=== PATIENT | female | born 1975 | race Two or more races ===

== ENCOUNTER 2018-03-09 20:46 | Emergency (ER) | payer MEDICAID, OTHER ==
[~2018-03-09] VITALS: Ht 160 cm; Wt 61.2 kg
[2018-03-09 20:55] VITALS: BP 94/57
[2018-03-09] MEDS ORDERED: DIATR MEGLU/DIATRIZOATE SODIUM 120 ML BOTTLE (GASTROGRAPHIN) PO ONE (21:30)
[2018-03-09] MEDS ORDERED: DIATR MEGLU/DIATRIZOATE SODIUM 120 ML BOTTLE (GASTROGRAPHIN) ONE (21:32)
[2018-03-09] MEDS ORDERED: DIATR MEGLU/DIATRIZOATE SODIUM 30 ML BOTTLE (GASTROGRAPHIN) ONE (21:38)
--- NOTE | 2018-03-09 22:22 | NUR ---
SPOKE WITH [facility] TO SET UP BLS TRANSPORT TO [facility]. ETA [id number]. TRIP# [id number].
== END 2018-03-09 22:58 ==
LOC: ER 20:47
DX: K94.23 Gastrostomy malfunction (principal); G93.1 Anoxic brain damage, not elsewhere classified
CPT/HCPCS: 43760; 74018; 99284; A4606; Q9963; Z7610

== ENCOUNTER 2023-08-30 10:04 | Inpatient (IN) | payer MEDICAID ==
[~2023-08-30] VITALS: Ht 121.9 cm; Wt 44.5 kg
[2023-08-30] VITALS (11 sets, daily range): BP systolic 97–119; BP diastolic 60–95; TEMP 98; O2SAT 96–100
[2023-08-30] MEDS ORDERED: NUTR250L62 GT (10:56)
[2023-08-30] MEDS ORDERED: DOCU100T2 GT (10:56)
[2023-08-30] MEDS ORDERED: ASCO-352 GT (10:56)
[2023-08-30] MEDS ORDERED: COLLAGEN POWDER TP (10:56)
[2023-08-30] MEDS ORDERED: ALBU6.7H9 IH (10:56)
[2023-08-30] MEDS ORDERED: ACET-73 GT (10:56)
[2023-08-30] MEDS ORDERED: MAGN400O6 GT (10:56)
[2023-08-30] MEDS ORDERED: NA P133E RC (10:56)
[2023-08-30] MEDS ORDERED: BISA10SU11 RC (10:56)
[2023-08-30] MEDS ORDERED: CHOL100043 GT (10:56)
[2023-08-30] MEDS ORDERED: PANT40SU2 GT (10:56)
[2023-08-30] MEDS ORDERED: ALBUT2 IH (10:56)
[2023-08-30] MEDS ORDERED: BACL10TA GT (10:56)
[2023-08-30] MEDS ORDERED: COLL30OI TP (10:56)
[2023-08-30] MEDS ORDERED: MULT-225 GT (10:56)
[2023-08-30] MEDS ORDERED: ACET160L44 GT (10:56)
[2023-08-30] MEDS ORDERED: ACET-868 GT (10:56)
[2023-08-30] MEDS ORDERED: ALBU2.5V38 IH (10:56)
[2023-08-30] MEDS ORDERED: AMIN30LI66 GT (10:56)
[2023-08-30] MEDS ORDERED: CHLO473M5 MM (10:56)
[2023-08-30] MEDS ORDERED: CRAN425C6 GT (10:56)
[2023-08-30] MEDS: IV NS 0.9% 1,000 ML BAG IV ONE (11:00)
[2023-08-30 11:07] LABS: BASOPHILS # (AUTO) 0.1 K/uL (0.0-0.2); BASOPHILS % (AUTO) 1.1 % (0.0-2.0); EOSINOPHILS # (AUTO) 0.3 K/uL (0.0-0.7); LYMPHOCYTES # (AUTO) 1.7 K/uL (0.8-4.8); LYMPHOCYTES % (AUTO) 17.4 % (20.0-44.0); MEAN CORPUSCULAR HEMOGLOBIN 23 PG (26.0-33.0); MEAN CORPUSCULAR HGB CONC 33 g/dl (31.0-36.0); MEAN CORPUSCULAR VOLUME 69 fL (82-100); MONOCYTES # (AUTO) 0.9 K/uL (0.1-1.30); MONOCYTES % (AUTO) 8.9 % (2.0-12.0); NEUTROPHILS # (AUTO) 6.7 K/uL (1.8-8.9); NEUTROPHILS % (AUTO) 69.6 % (43.0-81.0); PLATELET COUNT (AUTO) 801 K/uL (150-450); RED BLOOD CELL COUNT(AUTO) 2.75 MIL/uL (4.0-5.2); RED CELL DISTRIBUTION WIDTH 18.8 % (11.5-15.0); WHITE BLOOD COUNT (AUTO) 9.6 K/uL (4.3-11.0)
[2023-08-30 11:15] LABS: CALCIUM, SERUM 9.5 mg/dL (8.5-10.1); CREATININE 0.5 mg/dL (0.6-1.3)
[2023-08-30 11:17] LABS: HEMATOCRIT 19 % (33-45); HEMOGLOBIN 6.2 g/dL (11.5-14.8)
[2023-08-30 11:21] LABS: INR 1.06 (0.91-1.10); PARTIAL THROMBOPLASTIN TIME 30.2 SEC (24.3-34.3); PROTHROMBIN TIME 11.2 SECS (9.2-11.1)
[2023-08-30 11:26] LABS: POTASSIUM 2.7 mmol/L (3.5-5.1)
[2023-08-30 11:31] LABS: LACTIC ACID 2.7 mmol/L (0.4-2.0)
[2023-08-30] MEDS ORDERED: POTASSIUM CL. PREMIX PERIPHER. 0 ML ONE (11:59)
[2023-08-30] MEDS: POTASSIUM CL. PREMIX PERIPHER. 50 ML IV SCH (12:00)
[2023-08-30 12:23] LABS: ANISOCYTOSIS 1+; BAND % (MANUAL) 2 % (0.0-5.0); BASOPHILS % (MANUAL) 0 % (0.0-2.0); EOSINOPHILS % (MANUAL) 3 % (0-4); HYPOCHROMASIA 1+; LYMPHOCYTES % (MANUAL) 15 % (16-48); MONOCYTES % (MANUAL) 7 % (0-11.0); NEUTROPHILS % (MANUAL) 73 (42-76); PLATELET ESTIMATE INCREASED
[2023-08-30 12:42] LABS: ALBUMIN 1.8 g/dL (3.4-5.0); BILIRUBIN,DIRECT 0.2 mg/dL (0.0-0.2); BILIRUBIN,TOTAL 0.4 mg/dL (0.2-1.0); TOTAL PROTEIN, SERUM 9.1 g/dL (6.4-8.2)
[2023-08-30] MEDS ORDERED: POTASSIUM CL. PREMIX PERIPHER. 150 ML ONE (12:55)
[2023-08-30] MEDS ORDERED: POTASSIUM CL. PREMIX PERIPHER. 50 ML ONE (12:59)
[2023-08-30] MEDS ORDERED: MAG HYDROX/AL HYDROX/SIMETH 30 ML UDC PO PRN (13:30)
[2023-08-30] MEDS ORDERED: ONDANSETRON HCL/PF 4 MG/2 ML VIAL IVP PRN (13:30)
[2023-08-30] MEDS ORDERED: Z GUARD REMEDY 4 OZ OINT TP PRN (13:30)
[2023-08-30] MEDS ORDERED: MAGNESIUM HYDROXIDE 30 ML UDC PO PRN (13:30)
[2023-08-30] MEDS ORDERED: ZOLPIDEM TARTRATE 5 MG TABLET PO PRN (13:30)
[2023-08-30 14:12] LABS: CALCIUM, SERUM 8.6 mg/dL (8.5-10.1); CREATININE 0.4 mg/dL (0.6-1.3)
[2023-08-30 14:23] LABS: POTASSIUM 2.7 mmol/L (3.5-5.1)
[2023-08-30 16:21] LABS: OCCULT BLOOD STOOL POSITIVE (NEGATIVE)
[2023-08-30 19:22] LABS: HEMOGLOBIN 7.2 g/dL (11.5-14.8)
[2023-08-30 19:45] LABS: CREATININE, URINE 25.1 MG/DL (30.0-125.0); URINE TOTAL PROTEIN 87.1 mg/dL (0-11.9)
[2023-08-30 20:08] LABS: APPEARANCE,URINE CLOUDY (CLEAR); BILIRUBIN,URINE NEGATIVE (NEGATIVE); COLOR,URINE YELLOW (YELLOW); UGLUCOSE NEGATIVE (NEGATIVE)
[2023-08-30 20:09] LABS: BLOOD, URINE 2+ Ery/uL (NEGATIVE); KETONES,URINE NEGATIVE (NEGATIVE); PH,URINE 8.5 (5.0-8.0)
[2023-08-30 20:10] LABS: LEUKOCYTE ESTERASE ,URINE 3+ (NEGATIVE); NITRITE, URINE NEGATIVE (NEGATIVE); PROTEIN,URINE 2+ mg/dl (NEGATIVE)
[2023-08-30 20:23] LABS: CALCIUM, SERUM 8.2 mg/dL (8.5-10.1); CREATININE 0.4 mg/dL (0.6-1.3)
[2023-08-30 20:33] LABS: POTASSIUM 2.5 mmol/L (3.5-5.1)
[2023-08-30 20:46] LABS: EOSINOPHIL,URINE None Seen
[2023-08-30 20:54] LABS: ADD URINE CULTURE YES; BACTERIA,URINE Moderate /HPF (None Seen); SQUAMOUS EPITHELIAL CELL,UR Few /HPF (None Seen); WBC,URINE 21-50 /HPF (0-3)
[2023-08-30] MEDS: POTASSIUM CHLORIDE 10 MEQ/50 ML PREMIXED IVPB FOR PERIPHERAL LINE IV ONE (21:13)
[2023-08-31] VITALS (14 sets, daily range): BP systolic 90–113; BP diastolic 68–83; TEMP 97.7–99.5; O2SAT 92–99
[2023-08-31] MEDS: POTASSIUM CHLORIDE 10 MEQ/50 ML PREMIXED IVPB FOR PERIPHERAL LINE IV NR (00:30)
[2023-08-31] MEDS: ACETAMINOPHEN 325 MG TABLET PO PRN (00:52)
[2023-08-31] MEDS: IV NS 0.9% 1,000 ML IV PRN (04:15)
[2023-08-31 07:45] LABS: BASOPHILS % (AUTO) 0.2 % (0.0-2.0); EOSINOPHILS # (AUTO) 0.3 K/uL (0.0-0.7); EOSINOPHILS % (AUTO) 3.3 % (0.0-6.0); HEMATOCRIT 22 % (33-45); HEMOGLOBIN 7.1 g/dL (11.5-14.8); LYMPHOCYTES # (AUTO) 1.2 K/uL (0.8-4.8); LYMPHOCYTES % (AUTO) 15.4 % (20.0-44.0); MEAN CORPUSCULAR HEMOGLOBIN 24 PG (26.0-33.0); MEAN CORPUSCULAR HGB CONC 33 g/dl (31.0-36.0); MEAN CORPUSCULAR VOLUME 73 fL (82-100); MONOCYTES # (AUTO) 0.7 K/uL (0.1-1.30); MONOCYTES % (AUTO) 8.7 % (2.0-12.0); NEUTROPHILS # (AUTO) 5.8 K/uL (1.8-8.9); NEUTROPHILS % (AUTO) 72.4 % (43.0-81.0); PLATELET COUNT (AUTO) 674 K/uL (150-450); RED CELL DISTRIBUTION WIDTH 20.7 % (11.5-15.0)
[2023-08-31 08:01] LABS: CALCIUM, SERUM 8.6 mg/dL (8.5-10.1); CREATININE 0.3 mg/dL (0.6-1.3); MAGNESIUM 2.2 mg/dL (1.8-2.4); PHOSPHORUS 2.4 mg/dL (2.5-4.9)
[2023-08-31 08:07] LABS: POTASSIUM 2.7 mmol/L (3.5-5.1)
[2023-08-31] MEDS: PANTOPRAZOLE 40 MG VIAL IV SCH (08:26)
[2023-08-31 08:33] LABS: THYROID STIMULATING HORMONE 1.22 uIU/mL (0.358-3.74); URIC ACID 3.8 mg/dL (2.6-7.2)
[2023-08-31 09:20] LABS: ANISOCYTOSIS 1+; EOSINOPHILS % (MANUAL) 4 % (0-4); HYPOCHROMASIA 1+; LYMPHOCYTES % (MANUAL) 15 % (16-48); MONOCYTES % (MANUAL) 9 % (0-11.0); NEUTROPHILS % (MANUAL) 72 (42-76); PLATELET ESTIMATE INCREASED
[2023-08-31] MEDS ORDERED: MAG HYDROX/AL HYDROX/SIMETH 30 ML UDC GT PRN (09:40)
[2023-08-31] MEDS ORDERED: MAGNESIUM HYDROXIDE 30 ML UDC GT PRN ×2 (09:40→15:00)
[2023-08-31] MEDS: POTASSIUM CL. PREMIX PERIPHER. 50 ML IV SCH (09:57)
[2023-08-31] MEDS ORDERED: PANTOPRAZOLE 40 MG VIAL IV SCH (10:00)
[2023-08-31] MEDS: TWOCAL HN 1,000 ML LIQUID GT SCH (12:06)
[2023-08-31] MEDS ORDERED: NA PHOS,M-B/NA PHOS,DI-BA 1 EA ENEMA RC PRN (15:00)
[2023-08-31] MEDS ORDERED: Medication Not On Formulary EA (Acetaminophen 20 ML) GT PRN (15:00)
[2023-08-31] MEDS ORDERED: ALBUTEROL SULFATE 8 GM HFA.AER.AD IH PRN (15:00)
[2023-08-31] MEDS ORDERED: ACETAMINOPHEN 650 MG/20.3 ML UDC GT PRN (15:00)
[2023-08-31] MEDS ORDERED: BISACODYL SUPP (10 MG) 10 MG/SUPP.RECT SUPP.RECT RC PRN (15:00)
[2023-08-31] MEDS: MULTIVITAMINS,THERAGRAN 1 UDTAB TABLET GT SCH (15:07)
[2023-08-31] MEDS: CEFTRIAXONE 1 G in IV D5W 50 ML IV SCH (15:08)
[2023-08-31] MEDS ORDERED: ALBUTEROL FS 2.5 MG/3 ML VIAL.NEB NEB PRN (15:30)
[2023-08-31] MEDS: NEUTRA PHOS 1 POWD.PACKET GT ONE (15:36)
[2023-08-31 15:50] LABS: CALCIUM, SERUM 8.4 mg/dL (8.5-10.1); CREATININE 0.3 mg/dL (0.6-1.3); POTASSIUM 4.1 mmol/L (3.5-5.1)
[2023-08-31 16:14] LABS: PREGNANCY TEST URINE QUAL NEGATIVE (NEGATIVE)
[2023-08-31] MEDS: THERAHONEY GEL 1.5 OZ TUBE TP SCH (16:21)
[2023-08-31] MEDS ORDERED: Medication Not On Formulary EA (Cranberry Extract (Cranberry) 850 MG) GT SCH (17:00)
[2023-08-31] MEDS: CHOLECALCIFEROL 1,000 UNIT TABLET (VIT D3) GT SCH (17:33)
[2023-08-31] MEDS: BACLOFEN (10 MG) 10 MG TABLET GT SCH (17:33)
[2023-08-31] MEDS: ASCORBIC ACID 500 MG TABLET GT SCH (17:33)
[2023-08-31] MEDS: DOCUSATE SODIUM LIQ 100 MG/10 ML UDC GT SCH (17:33)
[2023-08-31] MEDS ORDERED: Medication Not On Formulary EA (Amino AC/Protein Hydr/Whey Pro (Liquacel Liquid Protein GT SCH (18:00)
[2023-08-31] MEDS: CHLORHEXIDINE GLUCONATE 15 ML UDC MM SCH (21:33)
[2023-08-31] MEDS: ALBUTEROL FS 2.5 MG/3 ML VIAL.NEB NEB SCH (21:35)
[2023-09-01] VITALS (14 sets, daily range): BP systolic 90–120; BP diastolic 65–86; TEMP 98.6–99.4; O2SAT 94–99
[2023-09-01 07:22] LABS: BASOPHILS % (AUTO) 0.4 % (0.0-2.0); EOSINOPHILS # (AUTO) 0.2 K/uL (0.0-0.7); EOSINOPHILS % (AUTO) 2.5 % (0.0-6.0); HEMATOCRIT 22 % (33-45); LYMPHOCYTES # (AUTO) 1.4 K/uL (0.8-4.8); LYMPHOCYTES % (AUTO) 15.2 % (20.0-44.0); MEAN CORPUSCULAR HEMOGLOBIN 24 PG (26.0-33.0); MEAN CORPUSCULAR HGB CONC 32 g/dl (31.0-36.0); MEAN CORPUSCULAR VOLUME 74 fL (82-100); MONOCYTES # (AUTO) 0.7 K/uL (0.1-1.30); MONOCYTES % (AUTO) 8.4 % (2.0-12.0); NEUTROPHILS # (AUTO) 6.6 K/uL (1.8-8.9); NEUTROPHILS % (AUTO) 73.5 % (43.0-81.0); PLATELET COUNT (AUTO) 668 K/uL (150-450); RED BLOOD CELL COUNT(AUTO) 2.94 MIL/uL (4.0-5.2); RED CELL DISTRIBUTION WIDTH 21.2 % (11.5-15.0); WHITE BLOOD COUNT (AUTO) 8.9 K/uL (4.3-11.0)
[2023-09-01 07:27] LABS: CALCIUM, SERUM 7.8 mg/dL (8.5-10.1); CREATININE 0.3 mg/dL (0.6-1.3); PHOSPHORUS 2.8 mg/dL (2.5-4.9); POTASSIUM 3.6 mmol/L (3.5-5.1)
[2023-09-01] MEDS: THERAHONEY GEL 1.5 OZ TUBE TP SCH ×2 (10:13→12:46)
[2023-09-01 12:00] LABS: ANISOCYTOSIS 1+; BASOPHILS % (MANUAL) 0 % (0.0-2.0); EOSINOPHILS % (MANUAL) 2 % (0-4); HYPOCHROMASIA 1+; LYMPHOCYTES % (MANUAL) 13 % (16-48); MONOCYTES % (MANUAL) 10 % (0-11.0); NEUTROPHILS % (MANUAL) 75 (42-76); OVALOCYTES 1+; PLATELET ESTIMATE INCREASED
[2023-09-01 14:12] LABS: CALCIUM, SERUM 8.2 mg/dL (8.5-10.1); CREATININE 0.3 mg/dL (0.6-1.3); POTASSIUM 3.5 mmol/L (3.5-5.1)
[2023-09-01] MEDS: ACETAMINOPHEN 650 MG/20.3 ML UDC GT PRN (17:14)
[2023-09-02] VITALS (22 sets, daily range): BP systolic 90–114; BP diastolic 56–85; TEMP 97.6–99; O2SAT 96–100
[2023-09-02] MEDS: PANTOPRAZOLE 40 MG/PACK PACK NG SCH (08:20)
[2023-09-02 10:15] LABS: BASOPHILS % (AUTO) 0.5 % (0.0-2.0); EOSINOPHILS # (AUTO) 0.2 K/uL (0.0-0.7); EOSINOPHILS % (AUTO) 3.1 % (0.0-6.0); LYMPHOCYTES # (AUTO) 1.3 K/uL (0.8-4.8); LYMPHOCYTES % (AUTO) 16.3 % (20.0-44.0); MEAN CORPUSCULAR HEMOGLOBIN 25 PG (26.0-33.0); MEAN CORPUSCULAR HGB CONC 32 g/dl (31.0-36.0); MEAN CORPUSCULAR VOLUME 76 fL (82-100); MONOCYTES # (AUTO) 0.5 K/uL (0.1-1.30); MONOCYTES % (AUTO) 6.3 % (2.0-12.0); NEUTROPHILS # (AUTO) 5.7 K/uL (1.8-8.9); NEUTROPHILS % (AUTO) 73.8 % (43.0-81.0); PLATELET COUNT (AUTO) 608 K/uL (150-450); RED BLOOD CELL COUNT(AUTO) 2.62 MIL/uL (4.0-5.2); RED CELL DISTRIBUTION WIDTH 21.7 % (11.5-15.0); WHITE BLOOD COUNT (AUTO) 7.7 K/uL (4.3-11.0)
[2023-09-02 10:18] LABS: HEMATOCRIT 20 % (33-45); HEMOGLOBIN 6.4 g/dL (11.5-14.8)
[2023-09-02 11:56] LABS: ANISOCYTOSIS 1+; BAND % (MANUAL) 2 % (0.0-5.0); BASOPHILS % (MANUAL) 0 % (0.0-2.0); EOSINOPHILS % (MANUAL) 3 % (0-4); HYPOCHROMASIA 2+; LYMPHOCYTES % (MANUAL) 14 % (16-48); MONOCYTES % (MANUAL) 5 % (0-11.0); NEUTROPHILS % (MANUAL) 76 (42-76); PLATELET ESTIMATE ADEQUATE
[2023-09-03] VITALS (19 sets, daily range): BP systolic 84–122; BP diastolic 56–75; TEMP 97.7–99.4; O2SAT 96–100
[2023-09-03] MEDS: PROSOURCE / PROSTAT (PYXIS) 30 ML UDC GT SCH (08:12)
[2023-09-03] MEDS: ARGININE/GLUTAMINE/CALCIUM BMB 1 EACH POWD.PACK GT SCH (08:12)
[2023-09-03 08:48] LABS: BASOPHILS % (AUTO) 0.3 % (0.0-2.0); EOSINOPHILS # (AUTO) 0.3 K/uL (0.0-0.7); EOSINOPHILS % (AUTO) 4.7 % (0.0-6.0); HEMATOCRIT 28 % (33-45); HEMOGLOBIN 8.9 g/dL (11.5-14.8); LYMPHOCYTES # (AUTO) 0.9 K/uL (0.8-4.8); LYMPHOCYTES % (AUTO) 13.6 % (20.0-44.0); MEAN CORPUSCULAR HEMOGLOBIN 26 PG (26.0-33.0); MEAN CORPUSCULAR HGB CONC 33 g/dl (31.0-36.0); MEAN CORPUSCULAR VOLUME 79 fL (82-100); MONOCYTES # (AUTO) 0.5 K/uL (0.1-1.30); MONOCYTES % (AUTO) 8.1 % (2.0-12.0); NEUTROPHILS # (AUTO) 4.7 K/uL (1.8-8.9); NEUTROPHILS % (AUTO) 73.3 % (43.0-81.0); PLATELET COUNT (AUTO) 539 K/uL (150-450); RED BLOOD CELL COUNT(AUTO) 3.49 MIL/uL (4.0-5.2); RED CELL DISTRIBUTION WIDTH 22.1 % (11.5-15.0); WHITE BLOOD COUNT (AUTO) 6.5 K/uL (4.3-11.0)
[2023-09-03 08:52] LABS: CALCIUM, SERUM 8.6 mg/dL (8.5-10.1); CREATININE 0.4 mg/dL (0.6-1.3); POTASSIUM 4.1 mmol/L (3.5-5.1)
[2023-09-04] VITALS (14 sets, daily range): BP systolic 96–128; BP diastolic 77–93; TEMP 96.5–97.8; O2SAT 95–100
[2023-09-04 07:15] LABS: BASOPHILS % (AUTO) 0.7 % (0.0-2.0); EOSINOPHILS # (AUTO) 0.3 K/uL (0.0-0.7); EOSINOPHILS % (AUTO) 4.4 % (0.0-6.0); HEMATOCRIT 27 % (33-45); HEMOGLOBIN 8.7 g/dL (11.5-14.8); LYMPHOCYTES # (AUTO) 1.1 K/uL (0.8-4.8); LYMPHOCYTES % (AUTO) 16.6 % (20.0-44.0); MEAN CORPUSCULAR HEMOGLOBIN 25 PG (26.0-33.0); MEAN CORPUSCULAR HGB CONC 32 g/dl (31.0-36.0); MEAN CORPUSCULAR VOLUME 79 fL (82-100); MONOCYTES # (AUTO) 0.6 K/uL (0.1-1.30); MONOCYTES % (AUTO) 8.5 % (2.0-12.0); NEUTROPHILS # (AUTO) 4.7 K/uL (1.8-8.9); NEUTROPHILS % (AUTO) 69.8 % (43.0-81.0); PLATELET COUNT (AUTO) 600 K/uL (150-450); RED BLOOD CELL COUNT(AUTO) 3.45 MIL/uL (4.0-5.2); RED CELL DISTRIBUTION WIDTH 22.9 % (11.5-15.0); WHITE BLOOD COUNT (AUTO) 6.7 K/uL (4.3-11.0)
[2023-09-04 07:31] LABS: CALCIUM, SERUM 9.1 mg/dL (8.5-10.1); CREATININE 0.4 mg/dL (0.6-1.3); POTASSIUM 3.7 mmol/L (3.5-5.1)
== END 2023-09-04 18:15 | DRG 951 ==
LOC: ER 10:27 → TELE1 12:39
PROVIDERS: ADMIT Student in an Organized Health Care Education/Training Program; ATTEND Legal Medicine
PROC: 30233N1 Transfusion of Nonautologous Red Blood Cells into Peripheral Vein, Percutaneous Approach (ICD-10-PCS; 2023-08-30)
PROC: 0KBV0ZZ Excision of Right Foot Muscle, Open Approach (ICD-10-PCS; principal; 2023-09-02)
PROC: 0JBR0ZZ Excision of Left Foot Subcutaneous Tissue and Fascia, Open Approach (ICD-10-PCS; 2023-09-02)
DX: D64.9 Anemia, unspecified (principal); L89.154 Pressure ulcer of sacral region, stage 4; L89.894 Pressure ulcer of other site, stage 4; L89.324 Pressure ulcer of left buttock, stage 4; G93.1 Anoxic brain damage, not elsewhere classified; R53.2 Functional quadriplegia; E87.4 Mixed disorder of acid-base balance; L89.896 Pressure-induced deep tissue damage of other site; J96.10 Chronic respiratory failure, unspecified whether with hypoxia or hypercapnia; L89.523 Pressure ulcer of left ankle, stage 3; E87.8 Other disorders of electrolyte and fluid balance, not elsewhere classified; E87.1 Hypo-osmolality and hyponatremia; E86.9 Volume depletion, unspecified; D75.839 Thrombocytosis, unspecified; E87.6 Hypokalemia; G89.29 Other chronic pain; I10 Essential (primary) hypertension; J45.909 Unspecified asthma, uncomplicated; R13.10 Dysphagia, unspecified; Z93.0 Tracheostomy status; Z93.1 Gastrostomy status; Z99.11 Dependence on respirator [ventilator] status; N39.0 Urinary tract infection, site not specified; B96.20 Unspecified Escherichia coli [E. coli] as the cause of diseases classified elsewhere; W34.00XS Accidental discharge from unspecified firearms or gun, sequela; R19.5 Other fecal abnormalities; M24.562 Contracture, left knee; M24.561 Contracture, right knee; M24.571 Contracture, right ankle; M24.572 Contracture, left ankle
CPT/HCPCS: 31720; 36415; 71045-TC; 80048-TC; 80076-TC; 81001; 82272-TC; 82570-TC; 83605-TC; 83735-TC; 83935-TC; 84100-TC; 84132-TC; 84300-TC; 84443-TC; 84550-TC; 84703-TC; 85025-TC; 85027-TC; 85730-TC; 86850-TC; 87040-TC; 87086-TC; 94640-TC; 94760-TC; 94761-TC; 94762-TC; 94799-TC; 99082-TC; A4623; A6403; A7526; C9113; G0378; J0696; J3480; J7030; J7040; J7050; J7060; P9016

== ENCOUNTER 2023-11-02 18:03 | Inpatient (IN) | payer MEDICAID ==
[~2023-11-02] VITALS: Ht 134.6 cm; Wt 38.6 kg
[~2023-11-02 18:03] MED LIST: ACET-73 GT; ACET-868 GT; ACET160L44 GT; ALBU2.5V38 IH; ALBU6.7H9 IH; ALBUT2 IH; AMIN30LI66 GT; ASCO-352 GT; BACL10TA GT; BISA10SU11 RC; CHLO473M5 MM; CHOL100043 GT; COLL30OI TP; COLLAGEN POWDER TP; CRAN425C6 GT; DOCU100T2 GT; MAGN400O6 GT; MULT-225 GT; NA P133E RC; NUTR250L62 GT; PANT40SU2 GT
[2023-11-02] MEDS: VANCOMYCIN 1 GM in IV D5W 250 ML IV ONE (18:30)
[2023-11-02] MEDS ORDERED: VANCOMYCIN 1 GM /D5W 250 ML PB IV ONE (18:46)
[2023-11-02] MEDS ORDERED: ASCO500L2 GT (18:55)
[2023-11-02] MEDS ORDERED: POVI3780 TP (18:55)
[2023-11-02] MEDS ORDERED: MULT9LIQ9 GT (18:55)
[2023-11-02] MEDS ORDERED: SODI473S9 TP (18:55)
[2023-11-02] MEDS ORDERED: FERR220E2 GT (18:55)
[2023-11-02] MEDS: CEFEPIME 1 GM in IV D5W 50 ML IV ONE (19:04)
[2023-11-02 19:05] LABS: BASOPHILS % (AUTO) 0.7 % (0.0-2.0); EOSINOPHILS # (AUTO) 0.3 K/uL (0.0-0.7); EOSINOPHILS % (AUTO) 4.1 % (0.0-6.0); HEMATOCRIT 26 % (33-45); HEMOGLOBIN 8.5 g/dL (11.5-14.8); LYMPHOCYTES # (AUTO) 1.4 K/uL (0.8-4.8); LYMPHOCYTES % (AUTO) 21.4 % (20.0-44.0); MEAN CORPUSCULAR HEMOGLOBIN 26 PG (26.0-33.0); MEAN CORPUSCULAR HGB CONC 33 g/dl (31.0-36.0); MEAN CORPUSCULAR VOLUME 79 fL (82-100); MONOCYTES # (AUTO) 0.7 K/uL (0.1-1.30); MONOCYTES % (AUTO) 10.1 % (2.0-12.0); NEUTROPHILS # (AUTO) 4.3 K/uL (1.8-8.9); NEUTROPHILS % (AUTO) 63.7 % (43.0-81.0); PLATELET COUNT (AUTO) 576 K/uL (150-450); RED BLOOD CELL COUNT(AUTO) 3.24 MIL/uL (4.0-5.2); RED CELL DISTRIBUTION WIDTH 19.8 % (11.5-15.0); WHITE BLOOD COUNT (AUTO) 6.7 K/uL (4.3-11.0)
[2023-11-02 19:16] LABS: CALCIUM, SERUM 8.9 mg/dL (8.5-10.1); CARBON DIOXIDE 39 mmol/L (21-32); CHLORIDE 83 mmol/L (98-107); CREATININE 0.3 mg/dL (0.6-1.3); GLUCOSE 106 mg/dL (74-106); POTASSIUM 3.4 mmol/L (3.5-5.1); SODIUM SERUM 125 mmol/L (136-145); UREA NITROGEN, BLOOD 17 mg/dL (7-18)
[2023-11-02 19:19] LABS: INR 1.06 (0.91-1.10); PARTIAL THROMBOPLASTIN TIME 32.2 SEC (24.3-34.3); PROTHROMBIN TIME 11.2 SECS (9.2-11.1)
[2023-11-02 19:22] LABS: LACTIC ACID 1.1 mmol/L (0.4-2.0)
[2023-11-02 19:32] LABS: BILIRUBIN,TOTAL 0.4 mg/dL (0.2-1.0)
[2023-11-02 19:33] LABS: ALANINE AMINOTRANSFERASE 55 U/L (12-78); ALBUMIN 1.6 g/dL (3.4-5.0); ALKALINE PHOSPHATASE 115 U/L (46-116); ASPARTATE AMINOTRANSFERASE 55 U/L (15-37); BILIRUBIN,DIRECT 0.1 mg/dL (0.0-0.2); TOTAL PROTEIN, SERUM 8.8 g/dL (6.4-8.2)
[2023-11-02 19:35] VITALS: O2SAT 100
[2023-11-02] MEDS ORDERED: MAG HYDROX/AL HYDROX/SIMETH 30 ML UDC GT PRN (21:00)
[2023-11-02] MEDS ORDERED: MAGNESIUM HYDROXIDE 30 ML UDC GT PRN (21:00)
[2023-11-02] MEDS ORDERED: CEFEPIME 1 GM in IV D5W 50 ML IV SCH (21:00)
[2023-11-02] MEDS ORDERED: ONDANSETRON HCL/PF 4 MG/2 ML VIAL IVP PRN (21:00)
[2023-11-02] MEDS ORDERED: ACETAMINOPHEN 650 MG/SUPP.RECT RC PRN (21:00)
[2023-11-02 21:27] LABS: APPEARANCE,URINE CLOUDY (CLEAR); COLOR,URINE YELLOW (YELLOW)
[2023-11-02 21:29] LABS: PH,URINE 8.5 (5.0-8.0)
[2023-11-02 21:30] LABS: BILIRUBIN,URINE NEGATIVE (NEGATIVE); KETONES,URINE NEGATIVE (NEGATIVE); PROTEIN,URINE 3+ mg/dl (NEGATIVE); UGLUCOSE NEGATIVE (NEGATIVE)
[2023-11-02 21:31] LABS: BLOOD, URINE 3+ Ery/uL (NEGATIVE); NITRITE, URINE POSITIVE (NEGATIVE); UROBILINOGEN,URINE 0.2 EU/dL (0.2)
[2023-11-02 21:32] LABS: LEUKOCYTE ESTERASE ,URINE 3+ (NEGATIVE)
[2023-11-02 21:38] LABS: RBC,URINE 51-80 /HPF (0-2); WBC,URINE 51-80 /HPF (0-3)
[2023-11-02 21:39] LABS: ADD URINE CULTURE YES; BACTERIA,URINE 4+ /HPF (None Seen); MUCUS,URINE Moderate /LPF (None Seen); SQUAMOUS EPITHELIAL CELL,UR 0-2 /HPF (None Seen)
[2023-11-02] MEDS ORDERED: Medication Not On Formulary EA (Acetaminophen 20 ML) GT PRN (22:00)
[2023-11-02] MEDS ORDERED: VANCOMYCIN 1 GM in IV D5W 250 ML IV ONE (22:00)
[2023-11-02] MEDS ORDERED: BISACODYL SUPP (10 MG) 10 MG/SUPP.RECT SUPP.RECT RC PRN (22:00)
[2023-11-02] MEDS ORDERED: ACETAMINOPHEN 650 MG/20.3 ML UDC GT PRN (22:00)
[2023-11-02] MEDS ORDERED: NA PHOS,M-B/NA PHOS,DI-BA 1 EA ENEMA RC PRN (22:00)
[2023-11-02 22:30] VITALS: BP 110/79; TEMP 98.6; O2SAT 95
[2023-11-02 22:56] VITALS: O2SAT 95
[2023-11-03] VITALS (12 sets, daily range): BP systolic 91–113; BP diastolic 62–81; TEMP 98.1–99.7; O2SAT 94–100
[2023-11-03] MEDS: IV NS 0.9% 1,000 ML IV SCH (00:11)
[2023-11-03] MEDS: BACLOFEN (10 MG) 10 MG TABLET GT SCH (00:57)
[2023-11-03] MEDS ORDERED: CEFEPIME 1 GM VIAL ONE (03:37)
[2023-11-03] MEDS: CEFEPIME 1 GM in IV D5W 50 ML IV SCH (04:34)
[2023-11-03] MEDS: ALBUTEROL FS 2.5 MG/3 ML VIAL.NEB IH SCH (05:42)
[2023-11-03 06:37] LABS: BASOPHILS % (AUTO) 0.3 % (0.0-2.0); EOSINOPHILS # (AUTO) 0.3 K/uL (0.0-0.7); EOSINOPHILS % (AUTO) 3.7 % (0.0-6.0); HEMATOCRIT 22 % (33-45); HEMOGLOBIN 7.4 g/dL (11.5-14.8); LYMPHOCYTES # (AUTO) 1.4 K/uL (0.8-4.8); LYMPHOCYTES % (AUTO) 17.5 % (20.0-44.0); MEAN CORPUSCULAR HEMOGLOBIN 27 PG (26.0-33.0); MEAN CORPUSCULAR HGB CONC 34 g/dl (31.0-36.0); MEAN CORPUSCULAR VOLUME 78 fL (82-100); MONOCYTES # (AUTO) 0.6 K/uL (0.1-1.30); MONOCYTES % (AUTO) 7.4 % (2.0-12.0); NEUTROPHILS # (AUTO) 5.6 K/uL (1.8-8.9); NEUTROPHILS % (AUTO) 71.1 % (43.0-81.0); PLATELET COUNT (AUTO) 539 K/uL (150-450); RED BLOOD CELL COUNT(AUTO) 2.75 MIL/uL (4.0-5.2); RED CELL DISTRIBUTION WIDTH 19.6 % (11.5-15.0); WHITE BLOOD COUNT (AUTO) 7.8 K/uL (4.3-11.0)
[2023-11-03 07:10] LABS: CREATININE 0.4 mg/dL (0.6-1.3); MAGNESIUM 1.7 mg/dL (1.8-2.4); PHOSPHORUS 3.2 mg/dL (2.5-4.9)
[2023-11-03 07:22] LABS: THYROID STIMULATING HORMONE 0.77 uIU/mL (0.358-3.74)
[2023-11-03 07:29] LABS: POTASSIUM 2.5 mmol/L (3.5-5.1)
[2023-11-03] MEDS: VANCOMYCIN 500 MG in IV D5W 100ml IV SCH (07:49)
[2023-11-03] MEDS: CHLORHEXIDINE GLUCONATE 15 ML UDC MM SCH (08:10)
[2023-11-03] MEDS: FERROUS SULFATE UDC 300 MG/5 ML UDC GT SCH (08:10)
[2023-11-03] MEDS: PANTOPRAZOLE 40 MG VIAL IV SCH (08:10)
[2023-11-03] MEDS: DOCUSATE SODIUM LIQ 100 MG/10 ML UDC GT SCH (08:10)
[2023-11-03] MEDS ORDERED: Medication Not On Formulary EA (Docusate Sodium 100 MG) GT SCH (09:00)
[2023-11-03] MEDS ORDERED: Medication Not On Formulary EA (Ferrous Sulfate 7.5 ML) GT SCH (09:00)
[2023-11-03] MEDS: POTASSIUM CHLORIDE 20 MEQ TAB.PRT.SR PO SCH (09:20)
[2023-11-03] MEDS: MAGNESIUM OXIDE 400 MG TABLET NG ONE (09:21)
[2023-11-03] MEDS: JEVITY 1.2 CAL 1,000 ML BOTTLE GT PRN (09:45)
[2023-11-03] MEDS: POTASSIUM CHLORIDE 20 MEQ POWDER PACKET GT SCH (17:05)
[2023-11-03] MEDS: ASCORBIC ACID 500 MG TABLET GT SCH (17:06)
[2023-11-03] MEDS: PROSOURCE / PROSTAT (PYXIS) 30 ML UDC GT SCH (17:06)
[2023-11-03] MEDS: ACETAMINOPHEN ES 500 MG TABLET GT PRN (17:22)
[2023-11-03] MEDS ORDERED: ASCORBIC ACID 500 MG GT SCH (18:00)
[2023-11-03] MEDS: IV NS 0.9% 1,000 ML IV PRN (22:49)
[2023-11-04] VITALS (19 sets, daily range): BP systolic 98–128; BP diastolic 64–76; TEMP 97.3–100; O2SAT 95–100
[2023-11-04 07:16] LABS: BASOPHILS % (AUTO) 0.5 % (0.0-2.0); EOSINOPHILS # (AUTO) 0.3 K/uL (0.0-0.7); EOSINOPHILS % (AUTO) 6.5 % (0.0-6.0); HEMATOCRIT 24 % (33-45); HEMOGLOBIN 7.7 g/dL (11.5-14.8); LYMPHOCYTES # (AUTO) 1.1 K/uL (0.8-4.8); LYMPHOCYTES % (AUTO) 20.2 % (20.0-44.0); MEAN CORPUSCULAR HEMOGLOBIN 26 PG (26.0-33.0); MEAN CORPUSCULAR HGB CONC 33 g/dl (31.0-36.0); MEAN CORPUSCULAR VOLUME 80 fL (82-100); MONOCYTES # (AUTO) 0.6 K/uL (0.1-1.30); MONOCYTES % (AUTO) 11.6 % (2.0-12.0); NEUTROPHILS # (AUTO) 3.3 K/uL (1.8-8.9); NEUTROPHILS % (AUTO) 61.2 % (43.0-81.0); PLATELET COUNT (AUTO) 564 K/uL (150-450); RED BLOOD CELL COUNT(AUTO) 2.94 MIL/uL (4.0-5.2); RED CELL DISTRIBUTION WIDTH 19.1 % (11.5-15.0); WHITE BLOOD COUNT (AUTO) 5.4 K/uL (4.3-11.0)
[2023-11-04 07:46] LABS: CALCIUM, SERUM 8.7 mg/dL (8.5-10.1); CREATININE 0.4 mg/dL (0.6-1.3); MAGNESIUM 2.2 mg/dL (1.8-2.4); PHOSPHORUS 3.4 mg/dL (2.5-4.9); POTASSIUM 3.4 mmol/L (3.5-5.1)
[2023-11-04 07:56] LABS: THYROID STIMULATING HORMONE 1.04 uIU/mL (0.358-3.74); URIC ACID 3.7 mg/dL (2.6-7.2)
[2023-11-04] MEDS: MULTIVIT W/MINERALS 1 TAB TABLET GT SCH (08:08)
[2023-11-04] MEDS: THERAHONEY GEL 1.5 OZ TUBE TP SCH (10:26)
[2023-11-04] MEDS: CADEXOMER IODINE 40 GM TUBE TP SCH (10:26)
[2023-11-04] MEDS: DAKINS QUARTER STRENGTH (0.125%) 480 ML BOTTLE TOP SCH (11:49)
[2023-11-04] MEDS ORDERED: DIATR MEGLU/DIATRIZOATE SODIUM 30 ML BOTTLE (GASTROGRAPHIN) ONE (14:00)
[2023-11-04] MEDS: METOCLOPRAMIDE HCL 10 MG/2 ML VIAL IV SCH (15:17)
[2023-11-04 16:15] LABS: IRON, SERUM 15 ug/dl (50-175); TOTAL IRON BINDING CAPACITY 193 ug/dl (250-450)
[2023-11-04 16:31] LABS: FERRITIN 27 ng/mL (8-388)
[2023-11-05] VITALS (18 sets, daily range): BP systolic 90–128; BP diastolic 57–89; TEMP 97.5–99; O2SAT 95–100
[2023-11-05 07:03] LABS: BASOPHILS % (AUTO) 0.6 % (0.0-2.0); EOSINOPHILS # (AUTO) 0.3 K/uL (0.0-0.7); EOSINOPHILS % (AUTO) 6.4 % (0.0-6.0); HEMATOCRIT 23 % (33-45); HEMOGLOBIN 7.7 g/dL (11.5-14.8); LYMPHOCYTES # (AUTO) 1.3 K/uL (0.8-4.8); MEAN CORPUSCULAR HEMOGLOBIN 27 PG (26.0-33.0); MEAN CORPUSCULAR HGB CONC 33 g/dl (31.0-36.0); MEAN CORPUSCULAR VOLUME 81 fL (82-100); MONOCYTES # (AUTO) 0.6 K/uL (0.1-1.30); MONOCYTES % (AUTO) 11.8 % (2.0-12.0); NEUTROPHILS # (AUTO) 2.7 K/uL (1.8-8.9); NEUTROPHILS % (AUTO) 54.2 % (43.0-81.0); PLATELET COUNT (AUTO) 539 K/uL (150-450)
[2023-11-05 07:32] LABS: BILIRUBIN,TOTAL 0.3 mg/dL (0.2-1.0); CALCIUM, SERUM 8.7 mg/dL (8.5-10.1); CREATININE 0.4 mg/dL (0.6-1.3); PHOSPHORUS 3.3 mg/dL (2.5-4.9); POTASSIUM 4.9 mmol/L (3.5-5.1); TOTAL PROTEIN, SERUM 7.9 g/dL (6.4-8.2)
[2023-11-05] MEDS: PANTOPRAZOLE 40 MG/PACK PACK NG SCH (08:21)
[2023-11-05 09:24] LABS: ALBUMIN 1.4 g/dL (3.4-5.0)
[2023-11-05] MEDS: THERAHONEY GEL 1.5 OZ TUBE TP SCH (09:34)
[2023-11-06] VITALS (15 sets, daily range): BP systolic 111–138; BP diastolic 67–88; TEMP 97.5–98.3; O2SAT 94–100
[2023-11-06 07:44] LABS: C-REACTIVE PROTEIN 5.32 mg/dL (0.0-0.30)
[2023-11-06 07:45] LABS: ALBUMIN 1.5 g/dL (3.4-5.0); BILIRUBIN,TOTAL 0.4 mg/dL (0.2-1.0); CALCIUM, SERUM 8.7 mg/dL (8.5-10.1); CREATININE 0.5 mg/dL (0.6-1.3); MAGNESIUM 1.9 mg/dL (1.8-2.4); PHOSPHORUS 3.6 mg/dL (2.5-4.9); POTASSIUM 4.5 mmol/L (3.5-5.1)
[2023-11-06 07:49] LABS: CALCIUM, SERUM 8.4 mg/dL (8.5-10.1); CREATININE 0.4 mg/dL (0.6-1.3); POTASSIUM 4.5 mmol/L (3.5-5.1)
[2023-11-06 07:57] LABS: BASOPHILS % (AUTO) 0.4 % (0.0-2.0); EOSINOPHILS # (AUTO) 0.3 K/uL (0.0-0.7); EOSINOPHILS % (AUTO) 4.3 % (0.0-6.0); HEMATOCRIT 23 % (33-45); HEMOGLOBIN 7.3 g/dL (11.5-14.8); LYMPHOCYTES # (AUTO) 1.1 K/uL (0.8-4.8); LYMPHOCYTES % (AUTO) 13.4 % (20.0-44.0); MEAN CORPUSCULAR HEMOGLOBIN 26 PG (26.0-33.0); MEAN CORPUSCULAR HGB CONC 32 g/dl (31.0-36.0); MEAN CORPUSCULAR VOLUME 82 fL (82-100); MONOCYTES # (AUTO) 0.6 K/uL (0.1-1.30); MONOCYTES % (AUTO) 8.3 % (2.0-12.0); NEUTROPHILS # (AUTO) 5.8 K/uL (1.8-8.9); NEUTROPHILS % (AUTO) 73.6 % (43.0-81.0); PLATELET COUNT (AUTO) 574 K/uL (150-450); RED BLOOD CELL COUNT(AUTO) 2.79 MIL/uL (4.0-5.2); WHITE BLOOD COUNT (AUTO) 7.9 K/uL (4.3-11.0)
[2023-11-06 08:19] LABS: ERYTHROCYTE SEDIMENTATION RATE 64 MM/HR (0-20)
[2023-11-06] MEDS: Z GUARD REMEDY 4 OZ OINT TP PRN (10:34)
[2023-11-06] MEDS: VANCOMYCIN 500 MG in IV D5W 100ml IV SCH (14:17)
== END 2023-11-06 21:01 | DRG 364 ==
LOC: ER 18:06 → TELE 20:03 → MED 11-05 10:36
PROC: 0KB00ZZ Excision of Head Muscle, Open Approach (ICD-10-PCS; principal; 2023-11-05)
PROC: 0KBP0ZZ Excision of Left Hip Muscle, Open Approach (ICD-10-PCS; 2023-11-05)
PROC: 0KBN0ZZ Excision of Right Hip Muscle, Open Approach (ICD-10-PCS; 2023-11-05)
PROC: 0KBW0ZZ Excision of Left Foot Muscle, Open Approach (ICD-10-PCS; 2023-11-05)
PROC: 0KBV0ZZ Excision of Right Foot Muscle, Open Approach (ICD-10-PCS; 2023-11-05)
DX: L89.814 Pressure ulcer of head, stage 4 (principal); G93.41 Metabolic encephalopathy; E43 Unspecified severe protein-calorie malnutrition; G93.1 Anoxic brain damage, not elsewhere classified; D68.59 Other primary thrombophilia; L89.016 Pressure-induced deep tissue damage of right elbow; J96.10 Chronic respiratory failure, unspecified whether with hypoxia or hypercapnia; E87.1 Hypo-osmolality and hyponatremia; E88.09 Other disorders of plasma-protein metabolism, not elsewhere classified; L89.026 Pressure-induced deep tissue damage of left elbow; E86.1 Hypovolemia; Z93.0 Tracheostomy status; Z99.11 Dependence on respirator [ventilator] status; T83.518A Infection and inflammatory reaction due to other urinary catheter, initial encounter; L89.524 Pressure ulcer of left ankle, stage 4; L89.154 Pressure ulcer of sacral region, stage 4; N39.0 Urinary tract infection, site not specified; E87.6 Hypokalemia; K94.23 Gastrostomy malfunction; Y84.6 Urinary catheterization as the cause of abnormal reaction of the patient, or of later complication, without mention of misadventure at the time of the procedure; Z68.21 Body mass index [BMI] 21.0-21.9, adult; R13.10 Dysphagia, unspecified; Z74.01 Bed confinement status; W34.00XS Accidental discharge from unspecified firearms or gun, sequela; D50.9 Iron deficiency anemia, unspecified; L90.5 Scar conditions and fibrosis of skin; L89.894 Pressure ulcer of other site, stage 4; M24.562 Contracture, left knee; M24.561 Contracture, right knee; F41.9 Anxiety disorder, unspecified; Y83.8 Other surgical procedures as the cause of abnormal reaction of the patient, or of later complication, without mention of misadventure at the time of the procedure; Y73.8 Miscellaneous gastroenterology and urology devices associated with adverse incidents, not elsewhere classified; Y92.129 Unspecified place in nursing home as the place of occurrence of the external cause; J45.909 Unspecified asthma, uncomplicated; I10 Essential (primary) hypertension
CPT/HCPCS: 31720; 36415; 71045-TC; 74018; 80048-TC; 80053-TC; 80076-TC; 80202-TC; 81001; 82607-TC; 82728-TC; 83540-TC; 83605-TC; 83735-TC; 84100-TC; 84443-TC; 84484-TC; 84550-TC; 85025-TC; 85045-TC; 85652-TC; 85730-TC; 86140-TC; 87040-TC; 87081-TC; 87086-TC; 94640-TC; 94761-TC; 94799-TC; A4223; A4623; A6253; A6403; G0378; J0692; J2470; J2765; J3370; J7030; J7060; Q9963

== ENCOUNTER 2023-12-31 12:56 | Inpatient (IN) | payer MEDICAID ==
[2023-12-31] VITALS (8 sets, daily range): BP systolic 95–114; BP diastolic 68–85; TEMP 98.6–100; O2SAT 92–100
[~2023-12-31] VITALS: Ht 132.1 cm; Wt 39.9 kg
[~2023-12-31 12:56] MED LIST changes: -ALBU6.7H9 IH; -ALBUT2 IH; -ASCO-352 GT; +ASCO500L2 GT; -CHOL100043 GT; -COLL30OI TP; -CRAN425C6 GT; +FERR220E2 GT; -MULT-225 GT; +MULT9LIQ9 GT; +POVI3780 TP; +SODI473S9 TP
[2023-12-31] MEDS ORDERED: FERR325T24 GT (13:56)
[2023-12-31] MEDS ORDERED: MULT-213 GT (13:56)
[2023-12-31] MEDS ORDERED: ALBU2.5V38 IH (13:56)
[2023-12-31] MEDS ORDERED: HYDR-3973 PO (13:56)
[2023-12-31 13:58] LABS: CALCIUM, SERUM 8.9 mg/dL (8.5-10.1); CREATININE 0.4 mg/dL (0.6-1.3); POTASSIUM 3.5 mmol/L (3.5-5.1)
[2023-12-31 14:01] LABS: BASOPHILS % (AUTO) 0.2 % (0.0-2.0); EOSINOPHILS # (AUTO) 0.3 K/uL (0.0-0.7); EOSINOPHILS % (AUTO) 3.9 % (0.0-6.0); HEMATOCRIT 21 % (33-45); LYMPHOCYTES # (AUTO) 1.5 K/uL (0.8-4.8); LYMPHOCYTES % (AUTO) 16.9 % (20.0-44.0); MEAN CORPUSCULAR HEMOGLOBIN 25 PG (26.0-33.0); MEAN CORPUSCULAR HGB CONC 32 g/dl (31.0-36.0); MEAN CORPUSCULAR VOLUME 80 fL (82-100); MONOCYTES # (AUTO) 0.8 K/uL (0.1-1.30); MONOCYTES % (AUTO) 9.1 % (2.0-12.0); NEUTROPHILS # (AUTO) 6.2 K/uL (1.8-8.9); NEUTROPHILS % (AUTO) 69.9 % (43.0-81.0); PLATELET COUNT (AUTO) 595 K/uL (150-450); RED BLOOD CELL COUNT(AUTO) 2.58 MIL/uL (4.0-5.2); RED CELL DISTRIBUTION WIDTH 19.6 % (11.5-15.0); WHITE BLOOD COUNT (AUTO) 8.9 K/uL (4.3-11.0)
[2023-12-31 14:05] LABS: HEMOGLOBIN 6.6 g/dL (11.5-14.8)
[2023-12-31] MEDS ORDERED: VANCOMYCIN 1 GM in IV D5W 250 ML IV ONE (14:30)
[2023-12-31] MEDS: IV NS 0.9% 1,000 ML BAG IV ONE (14:44)
[2023-12-31] MEDS: PIPERACILLIN /TAZOBACTAM 3.375 G in IV D5W 50 ML IV ONE (15:16)
[2023-12-31 15:28] LABS: ALANINE AMINOTRANSFERASE 43 U/L (12-78); ALBUMIN 1.8 g/dL (3.4-5.0); ALKALINE PHOSPHATASE 126 U/L (46-116); ASPARTATE AMINOTRANSFERASE 29 U/L (15-37); BILIRUBIN,DIRECT 0.1 mg/dL (0.0-0.2); BILIRUBIN,TOTAL 0.4 mg/dL (0.2-1.0); TOTAL PROTEIN, SERUM 9.5 g/dL (6.4-8.2)
[2023-12-31] MEDS ORDERED: ONDANSETRON HCL/PF 4 MG/2 ML VIAL IVP PRN (15:30)
[2023-12-31] MEDS ORDERED: MAGNESIUM HYDROXIDE 30 ML UDC PO PRN (15:30)
[2023-12-31] MEDS ORDERED: Z GUARD REMEDY 4 OZ OINT TP PRN (15:30)
[2023-12-31] MEDS ORDERED: MAG HYDROX/AL HYDROX/SIMETH 30 ML UDC PO PRN (15:30)
[2023-12-31] MEDS ORDERED: ACETAMINOPHEN 325 MG TABLET PO PRN (15:30)
[2023-12-31 15:35] LABS: EOSINOPHILS % (MANUAL) 3 % (0-4); LYMPHOCYTES % (MANUAL) 17 % (16-48); MONOCYTES % (MANUAL) 4 % (0-11.0); NEUTROPHILS % (MANUAL) 76 (42-76); PLATELET ESTIMATE ADEQUATE
[2023-12-31 15:36] LABS: ANISOCYTOSIS 2+; HYPOCHROMASIA 1+
[2023-12-31 15:49] LABS: LACTIC ACID 0.9 mmol/L (0.4-2.0)
[2023-12-31 15:56] LABS: INR 1.13 (0.91-1.10); PARTIAL THROMBOPLASTIN TIME 29.6 SEC (24.3-34.3); PROTHROMBIN TIME 11.5 SECS (9.2-11.1)
[2023-12-31] MEDS: IV NS 0.9% 1,000 ML IV PRN (17:31)
[2023-12-31] MEDS: CEFTRIAXONE 1 G in IV D5W 50 ML IV SCH (19:33)
[2023-12-31] MEDS: VANCOMYCIN 1 GM in IV D5W 250ml IV ONE (20:13)
[2023-12-31] MEDS ORDERED: ZOLPIDEM TARTRATE 5 MG TABLET PO PRN (22:00)
[2023-12-31] MEDS: ACETAMINOPHEN 650 MG/SUPP.RECT RC PRN (22:33)
[2024-01-01] VITALS (16 sets, daily range): BP systolic 110–124; BP diastolic 74–84; TEMP 97.9–100; O2SAT 93–100
[2024-01-01] MEDS: VANCOMYCIN 750 MG in IV D5W 250 ML IV SCH (03:20)
[2024-01-01 03:48] LABS: BASOPHILS % (AUTO) 0.4 % (0.0-2.0); EOSINOPHILS # (AUTO) 0.3 K/uL (0.0-0.7); EOSINOPHILS % (AUTO) 4.3 % (0.0-6.0); HEMATOCRIT 24 % (33-45); LYMPHOCYTES # (AUTO) 1.1 K/uL (0.8-4.8); LYMPHOCYTES % (AUTO) 17.3 % (20.0-44.0); MEAN CORPUSCULAR HEMOGLOBIN 27 PG (26.0-33.0); MEAN CORPUSCULAR HGB CONC 34 g/dl (31.0-36.0); MEAN CORPUSCULAR VOLUME 81 fL (82-100); MONOCYTES # (AUTO) 0.6 K/uL (0.1-1.30); MONOCYTES % (AUTO) 9.6 % (2.0-12.0); NEUTROPHILS # (AUTO) 4.5 K/uL (1.8-8.9); NEUTROPHILS % (AUTO) 68.4 % (43.0-81.0); PLATELET COUNT (AUTO) 519 K/uL (150-450); RED BLOOD CELL COUNT(AUTO) 2.94 MIL/uL (4.0-5.2); RED CELL DISTRIBUTION WIDTH 18.4 % (11.5-15.0); WHITE BLOOD COUNT (AUTO) 6.6 K/uL (4.3-11.0)
[2024-01-01 03:58] LABS: CALCIUM, SERUM 8.4 mg/dL (8.5-10.1); CREATININE 0.4 mg/dL (0.6-1.3); PHOSPHORUS 3.3 mg/dL (2.5-4.9); POTASSIUM 3.1 mmol/L (3.5-5.1)
[2024-01-01] MEDS: PANTOPRAZOLE 40 MG TABLET.DR PO SCH (07:30)
[2024-01-01] MEDS: THERAHONEY GEL 1.5 OZ TUBE TP SCH (09:00)
[2024-01-01] MEDS ORDERED: ALBUTEROL HALF STRENGTH 1.25 MG/3 ML VIAL.NEB NEB PRN (09:30)
[2024-01-01 09:40] LABS: ABG BASE EXCESS 5.4 mmol/L (-2.0-3.0); ABG OXYGEN SATURATION 95.6 % (94.0-98.0); ABG PCO2 38.3 mmHg (32.0-45.0); ABG PH 7.497 (7.350-7.450); ABG TOTAL HEMOGLOBIN 9.2 G/dL (12.0-16.0); COHb 1.1 % (0.5-1.5); MetHb 0.1 % (0.0-1.5); O2Hb 94.5 % (94.0-97.0)
[2024-01-01 10:50] LABS: APPEARANCE,URINE TURBID (CLEAR)
[2024-01-01 10:51] LABS: BILIRUBIN,URINE NEGATIVE (NEGATIVE); BLOOD, URINE 3+ Ery/uL (NEGATIVE); KETONES,URINE NEGATIVE (NEGATIVE); PROTEIN,URINE 2+ mg/dl (NEGATIVE); UGLUCOSE NEGATIVE (NEGATIVE); UROBILINOGEN,URINE 0.2 EU/dL (0.2)
[2024-01-01 10:52] LABS: LEUKOCYTE ESTERASE ,URINE 2+ (NEGATIVE); NITRITE, URINE POSITIVE (NEGATIVE)
[2024-01-01 11:01] LABS: COLOR,URINE OTHER (YELLOW)
[2024-01-01 11:04] LABS: ADD URINE CULTURE YES; BACTERIA,URINE 1+ /HPF (None Seen); RBC,URINE 51-80 /HPF (0-2); WBC,URINE 21-50 /HPF (0-3)
[2024-01-01 11:05] LABS: CALCIUM PHOSPHATE CRYSTALS,UR Few /HPF (None Seen)
[2024-01-01] MEDS: POTASSIUM CL. PREMIX PERIPHER. 50 ML IV SCH (12:24)
[2024-01-01] MEDS: ARGININE/GLUTAMINE/CALCIUM BMB 1 EACH POWD.PACK GT SCH (12:24)
[2024-01-01] MEDS: JEVITY 1.2 CAL 1,000 ML BOTTLE GT PRN (14:15)
[2024-01-01] MEDS ORDERED: NA PHOS,M-B/NA PHOS,DI-BA 1 EA ENEMA RC PRN (14:30)
[2024-01-01] MEDS ORDERED: HYDROCODONE/APAP 5/325MG TABLET PO PRN (14:30)
[2024-01-01] MEDS ORDERED: BISACODYL SUPP (10 MG) 10 MG/SUPP.RECT SUPP.RECT RC PRN (14:30)
[2024-01-01] MEDS ORDERED: MAGNESIUM HYDROXIDE 30 ML UDC GT PRN (14:30)
[2024-01-01] MEDS: ZOSYN IVPB 3.375 G in IV D5W 50ml IV SCH (14:34)
[2024-01-01] MEDS: BACLOFEN (10 MG) 10 MG TABLET GT SCH (17:30)
[2024-01-01] MEDS: FERROUS SULFATE UDC 300 MG/5 ML UDC GT SCH (17:31)
[2024-01-01] MEDS: ALBUTEROL FS 2.5 MG/3 ML VIAL.NEB NEB SCH (19:47)
[2024-01-01] MEDS: CHLORHEXIDINE GLUCONATE 15 ML UDC MM SCH (20:41)
[2024-01-02] VITALS (19 sets, daily range): BP systolic 102–129; BP diastolic 65–85; TEMP 97.6–98.5; O2SAT 94–100
[2024-01-02] MEDS: VANCOMYCIN 750 MG in IV D5W 250 ML IV SCH (02:20)
[2024-01-02 07:40] LABS: CALCIUM, SERUM 8.8 mg/dL (8.5-10.1); CREATININE 0.5 mg/dL (0.6-1.3); POTASSIUM 3.3 mmol/L (3.5-5.1)
[2024-01-02] MEDS: PANTOPRAZOLE 40 MG/PACK PACK GT SCH (09:32)
[2024-01-02] MEDS: ASCORBIC ACID 500 MG TABLET PO SCH (09:32)
[2024-01-02] MEDS: POTASSIUM CHLORIDE 20 MEQ POWDER PACKET NG SCH (10:58)
[2024-01-03] VITALS (17 sets, daily range): BP systolic 97–117; BP diastolic 64–72; TEMP 97.4–98.6; O2SAT 97–100
[2024-01-03 10:04] LABS: CALCIUM, SERUM 8.4 mg/dL (8.5-10.1); CREATININE 0.5 mg/dL (0.6-1.3)
[2024-01-03] MEDS: PIPERACILLIN /TAZOBACTAM 3.375 G in IV D5W 100 ML IV SCH (12:24)
[2024-01-04] VITALS (18 sets, daily range): BP systolic 99–115; BP diastolic 68–90; TEMP 97.9–98.4; O2SAT 98–100
[2024-01-04 07:57] LABS: BASOPHILS % (AUTO) 0.4 % (0.0-2.0); EOSINOPHILS # (AUTO) 0.4 K/uL (0.0-0.7); EOSINOPHILS % (AUTO) 7.4 % (0.0-6.0); HEMATOCRIT 27 % (33-45); HEMOGLOBIN 8.4 g/dL (11.5-14.8); LYMPHOCYTES # (AUTO) 1.1 K/uL (0.8-4.8); LYMPHOCYTES % (AUTO) 22.8 % (20.0-44.0); MEAN CORPUSCULAR HEMOGLOBIN 27 PG (26.0-33.0); MEAN CORPUSCULAR HGB CONC 32 g/dl (31.0-36.0); MEAN CORPUSCULAR VOLUME 84 fL (82-100); MONOCYTES # (AUTO) 0.5 K/uL (0.1-1.30); MONOCYTES % (AUTO) 9.9 % (2.0-12.0); NEUTROPHILS # (AUTO) 2.9 K/uL (1.8-8.9); NEUTROPHILS % (AUTO) 59.5 % (43.0-81.0); PLATELET COUNT (AUTO) 489 K/uL (150-450); RED BLOOD CELL COUNT(AUTO) 3.14 MIL/uL (4.0-5.2); RED CELL DISTRIBUTION WIDTH 19.1 % (11.5-15.0); WHITE BLOOD COUNT (AUTO) 4.9 K/uL (4.3-11.0)
[2024-01-04 08:48] LABS: BILIRUBIN,TOTAL 0.3 mg/dL (0.2-1.0); CALCIUM, SERUM 8.2 mg/dL (8.5-10.1); CREATININE 0.4 mg/dL (0.6-1.3); MAGNESIUM 2.2 mg/dL (1.8-2.4); PHOSPHORUS 3.2 mg/dL (2.5-4.9); POTASSIUM 3.7 mmol/L (3.5-5.1); TOTAL PROTEIN, SERUM 7.5 g/dL (6.4-8.2)
[2024-01-04 09:05] LABS: ALBUMIN 1.3 g/dL (3.4-5.0)
[2024-01-04 13:20] LABS: PREGNANCY TEST URINE QUAL NEGATIVE (NEGATIVE)
[2024-01-05] VITALS (18 sets, daily range): BP systolic 110–119; BP diastolic 51–80; TEMP 95.5–99.1; O2SAT 99–100
[2024-01-05 07:01] LABS: OCCULT BLOOD STOOL NEGATIVE (NEGATIVE)
[2024-01-05 08:25] LABS: CALCIUM, SERUM 8.3 mg/dL (8.5-10.1); CREATININE 0.4 mg/dL (0.6-1.3); POTASSIUM 3.6 mmol/L (3.5-5.1)
[2024-01-06] VITALS (13 sets, daily range): BP systolic 112–130; BP diastolic 58–86; TEMP 97.7–98.4; O2SAT 99–100
[2024-01-06] MEDS: JEVITY 1.2 CAL 1,000 ML BOTTLE GT PRN (05:07)
[2024-01-06 07:56] LABS: BASOPHILS % (AUTO) 0.7 % (0.0-2.0); EOSINOPHILS # (AUTO) 0.5 K/uL (0.0-0.7); EOSINOPHILS % (AUTO) 8.6 % (0.0-6.0); HEMATOCRIT 26 % (33-45); HEMOGLOBIN 8.3 g/dL (11.5-14.8); LYMPHOCYTES # (AUTO) 1.1 K/uL (0.8-4.8); LYMPHOCYTES % (AUTO) 18.3 % (20.0-44.0); MEAN CORPUSCULAR HEMOGLOBIN 27 PG (26.0-33.0); MEAN CORPUSCULAR HGB CONC 32 g/dl (31.0-36.0); MEAN CORPUSCULAR VOLUME 84 fL (82-100); MONOCYTES # (AUTO) 0.5 K/uL (0.1-1.30); MONOCYTES % (AUTO) 7.3 % (2.0-12.0); NEUTROPHILS # (AUTO) 4.1 K/uL (1.8-8.9); NEUTROPHILS % (AUTO) 65.1 % (43.0-81.0); PLATELET COUNT (AUTO) 451 K/uL (150-450); RED BLOOD CELL COUNT(AUTO) 3.12 MIL/uL (4.0-5.2); RED CELL DISTRIBUTION WIDTH 19.5 % (11.5-15.0); WHITE BLOOD COUNT (AUTO) 6.3 K/uL (4.3-11.0)
[2024-01-06 08:10] LABS: BILIRUBIN,TOTAL 0.2 mg/dL (0.2-1.0); CREATININE 0.5 mg/dL (0.6-1.3); MAGNESIUM 2.3 mg/dL (1.8-2.4); PHOSPHORUS 3.7 mg/dL (2.5-4.9); POTASSIUM 3.7 mmol/L (3.5-5.1); TOTAL PROTEIN, SERUM 7.5 g/dL (6.4-8.2)
[2024-01-06 08:28] LABS: ANISOCYTOSIS 1+; PLATELET ESTIMATE INCREASED
[2024-01-06 08:32] LABS: ALBUMIN 1.3 g/dL (3.4-5.0)
== END 2024-01-06 16:46 | DRG 364 ==
LOC: ER 13:09 → TELE-TD 15:32 → TELE1 16:28
PROC: 30233N1 Transfusion of Nonautologous Red Blood Cells into Peripheral Vein, Percutaneous Approach (ICD-10-PCS; principal; 2023-12-31)
PROC: 0KB00ZZ Excision of Head Muscle, Open Approach (ICD-10-PCS; 2024-01-06)
PROC: 0KBN0ZZ Excision of Right Hip Muscle, Open Approach (ICD-10-PCS; 2024-01-06)
PROC: 0KBP0ZZ Excision of Left Hip Muscle, Open Approach (ICD-10-PCS; 2024-01-06)
DX: L89.524 Pressure ulcer of left ankle, stage 4 (principal); G93.41 Metabolic encephalopathy; E43 Unspecified severe protein-calorie malnutrition; G93.1 Anoxic brain damage, not elsewhere classified; R53.2 Functional quadriplegia; M86.172 Other acute osteomyelitis, left ankle and foot; D68.59 Other primary thrombophilia; J96.10 Chronic respiratory failure, unspecified whether with hypoxia or hypercapnia; L89.896 Pressure-induced deep tissue damage of other site; E88.09 Other disorders of plasma-protein metabolism, not elsewhere classified; L89.154 Pressure ulcer of sacral region, stage 4; L89.814 Pressure ulcer of head, stage 4; L03.116 Cellulitis of left lower limb; L97.529 Non-pressure chronic ulcer of other part of left foot with unspecified severity; Z74.01 Bed confinement status; D50.9 Iron deficiency anemia, unspecified; M86.672 Other chronic osteomyelitis, left ankle and foot; E87.6 Hypokalemia; F41.9 Anxiety disorder, unspecified; I10 Essential (primary) hypertension; J45.909 Unspecified asthma, uncomplicated; R13.10 Dysphagia, unspecified; Z93.1 Gastrostomy status; M24.574 Contracture, right foot; M24.575 Contracture, left foot; Z93.0 Tracheostomy status; N39.0 Urinary tract infection, site not specified; M24.571 Contracture, right ankle; M24.572 Contracture, left ankle; M24.562 Contracture, left knee; M24.561 Contracture, right knee; Z68.22 Body mass index [BMI] 22.0-22.9, adult; B96.4 Proteus (mirabilis) (morganii) as the cause of diseases classified elsewhere
CPT/HCPCS: 31720; 36415; 36600; 71045-TC; 73630-TC; 80048-TC; 80053-TC; 80076-TC; 80202-TC; 81001; 82272-TC; 82803-TC; 83605-TC; 83735-TC; 84100-TC; 84484-TC; 84703-TC; 85025-TC; 85652-TC; 85730-TC; 86140-TC; 86850-TC; 87040-TC; 87081-TC; 87086-TC; 94640-TC; 94760-TC; 94762-TC; 94799-TC; A4223; A4623; A6403; G0378; J0696; J2543; J3370; J3371; J3480; J3490; J7030; J7050; J7060; P9016